=== PATIENT | female | born 1950 | race African-American/Black ===

== ENCOUNTER 2022-11-20 12:40 | Inpatient (IN) | payer OTHER ==
[2022-11-20 12:51] VITALS: BMI 18.8
[2022-11-20 14:36] LABS: VENOUS BASE EXCESS -2.6 mmol/L (-2-2); VENOUS O2 SATURATION 45.4 % (70-80); VENOUS PCO2 28.8 mmHg (38-52); VENOUS PH 7.463 (7.310-7.410)
[2022-11-20 14:43] LABS: BASO % 2.2 % (0-2.0); EOS % 1.6 % (0-4.5); HEMATOCRIT 32.5 % (32.4-45.2); HEMOGLOBIN 10.3 GM/dL (10.7-15.3); LYMPH % 23.6 % (8-40); MCH 26.6 pg (25.7-33.7); MCHC 31.8 g/dl (32.0-36.0); MEAN CELL VOLUME 83.7 fl (80-96); MEAN PLT VOLUME 8.4 fl (7.5-11.1); MONO % 11.2 % (3.8-10.2); NEUT % 61.4 % (42.8-82.8); PLATELET COUNT 163 10^3/uL (134-434); RBC 3.88 M/mm3 (3.60-5.2); RDW 17.7 % (11.6-15.6); WHITE BLOOD COUNT 7.6 K/mm3 (4.0-10.0)
[2022-11-20 14:52] LABS: ACTIVATED PTT 25.8 SECONDS (25.2-36.5); INR 1.31 (0.83-1.09); PROTHROMBIN TIME (PATIENT) 15.2 SEC (9.7-13.0)
[2022-11-20 15:06] LABS: LACTIC ACID 2.8 mmol/L (0.4-2.0); POTASSIUM 3.8 mmol/L (3.5-5.1)
[2022-11-20 15:08] LABS: ALBUMIN 2.2 g/dl (3.4-5.0); BLOOD UREA NITROGEN 11.5 mg/dL (7-18); CALCIUM 9.4 mg/dL (8.5-10.1)
[2022-11-20 15:11] LABS: CREATININE 1.1 mg/dL (0.55-1.3)
[2022-11-20 15:13] LABS: BILIRUBIN,TOTAL 0.5 mg/dL (0.2-1); TOT PROT 4.5 g/dl (6.4-8.2)
[2022-11-20] MEDS ORDERED: SODIUM CHLORIDE 0.9% 500 ML INFUS.BAG IV ONE (15:41)
[2022-11-20 16:22] LABS: EPI CELLS 32 /uL (0-25.1); HYALINE CASTS 0 /uL (0-3.1); PH,URINE 7.5 (5.0-8.0); URINE APPEARANCE CLOUDY; URINE BACTERIA >9,000 /uL (0-1359); URINE BILIRUBIN NEGATIVE (NEGATIVE); URINE COLOR YELLOW; URINE GLUCOSE (UA) NEGATIVE (NEGATIVE); URINE KETONE NEGATIVE (NEGATIVE); URINE LEUK ESTERASE 1+ (NEGATIVE); URINE NITRITE NEGATIVE (NEGATIVE); URINE PROTEIN NEGATIVE (NEGATIVE); URINE RBC 25 /uL (0-23.9); URINE UROBILINOGEN 0.2 mg/dL (0.2-1.0); URINE WBC 24 /uL (0-25.8)
[2022-11-20 16:45] LABS: URINE CRYSTALS CALCIUM OXALATE /hpf
[2022-11-20 18:57] LABS: LACTIC ACID 2.2 mmol/L (0.4-2.0)
[2022-11-20] MEDS ORDERED: ACETAMINOPHEN 1000 MG/100 ML BAG IVPB PRN (20:15)
[2022-11-20] MEDS: DEXTROSE 5%-NORMAL SALINE 1,000 ML IV SCH (23:33)
[2022-11-20] MEDS: levETIRAcetam 500 MG/5 ML INJECTION VIAL IVPB ONE (23:57)
[2022-11-21] MEDS: levETIRAcetam 500 MG/5 ML INJECTION VIAL IVPB ONE (01:04)
[2022-11-21] MEDS: HEPARIN NA (PORCINE) 5,000 UNITS/ML 1ML VIAL SQ SCH ×2 (09:26→22:23)
[2022-11-21] MEDS: predniSONE 5 MG TABLET (UD) PO SCH (09:26)
[2022-11-21] MEDS: levETIRAcetam 500 MG TABLET (FP) PO SCH ×2 (09:26→22:23)
[2022-11-21] MEDS: TACROLIMUS ANHYDROUS 1 MG CAPSULE PO SCH ×2 (09:26→22:24)
[2022-11-21] MEDS: FAMOTIDINE 20 MG TABLET PO SCH (09:26)
[2022-11-21] MEDS: MYCOPHENOLATE MOFETIL 500 MG TABLET PO SCH ×2 (09:27→22:24)
[2022-11-21] MEDS: DEXTROSE 5%-NORMAL SALINE 1,000 ML IV SCH (09:30)
[2022-11-21] MEDS ORDERED: CEFTRIAXONE 2 GM in DEXTROSE 5%-WATER 50 ML IVPB SCH (12:00)
[2022-11-21] MEDS ORDERED: CEFTRIAXONE 2 GM in DEXTROSE 5%-WATER 100 ML IVPB SCH (13:09)
[2022-11-21] MEDS ORDERED: ACETAMINOPHEN 325 MG TABLET (FP) PO PRN (20:07)
[2022-11-22 02:53] VITALS: RESP 18
[2022-11-22] MEDS: HEPARIN NA (PORCINE) 5,000 UNITS/ML 1ML VIAL SQ SCH ×2 (10:54→22:15)
[2022-11-22] MEDS: FAMOTIDINE 20 MG TABLET PO SCH (10:54)
[2022-11-22] MEDS: levETIRAcetam 500 MG TABLET (FP) PO SCH ×2 (10:54→22:15)
[2022-11-22] MEDS: predniSONE 5 MG TABLET (UD) PO SCH (10:54)
[2022-11-22] MEDS: TACROLIMUS ANHYDROUS 1 MG CAPSULE PO SCH ×2 (10:55→22:15)
[2022-11-22] MEDS: MYCOPHENOLATE MOFETIL 500 MG TABLET PO SCH ×2 (10:55→22:15)
[2022-11-22] MEDS: DEXTROSE 5%-NORMAL SALINE 1,000 ML IV SCH (10:56)
[2022-11-23] MEDS: AMOX TR/POT CLAV 500MG/125MG TABLETS (FP) PO SCH ×3 (10:07→17:14)
[2022-11-23] MEDS: levETIRAcetam 500 MG TABLET (FP) PO SCH ×2 (10:08→11:31)
[2022-11-23] MEDS: FAMOTIDINE 20 MG TABLET PO SCH ×2 (10:08→11:32)
[2022-11-23] MEDS: HEPARIN NA (PORCINE) 5,000 UNITS/ML 1ML VIAL SQ SCH ×2 (10:08→11:36)
[2022-11-23] MEDS: TACROLIMUS ANHYDROUS 1 MG CAPSULE PO SCH ×2 (10:08→11:31)
[2022-11-23] MEDS: MYCOPHENOLATE MOFETIL 500 MG TABLET PO SCH ×3 (10:08→11:34)
[2022-11-23] MEDS: predniSONE 5 MG TABLET (UD) PO SCH ×2 (10:08→11:32)
[2022-11-23 13:17] VITALS: TEMP 97.6
[2022-11-23 14:35] VITALS: BP 157/93; PULSE 98
[2022-11-23 15:13] LABS: TACROLIMUS FK506 BLOOD 12.2 ng/mL (2.0-20.0)
== END 2022-11-23 19:25 | DRG 948 ==
LOC: JER 12:40 → JERBED 17:00 → J6S 11-21 02:33
PROVIDERS: ADMIT Internal Medicine; ATTEND Family Medicine
DX: R41.82 Altered mental status, unspecified (principal); Z94.0 Kidney transplant status; R26.2 Difficulty in walking, not elsewhere classified; R53.83 Other fatigue; R53.1 Weakness; J44.9 Chronic obstructive pulmonary disease, unspecified; R26.9 Unspecified abnormalities of gait and mobility; N18.9 Chronic kidney disease, unspecified
CPT/HCPCS: 0241U-QW; 36415; 70450-TC; 71045-TC-FY; 80053; 80180; 80197; 81003; 82607; 82746; 82803; 83605; 84484; 85025; 85610; 85730; 86850; 86900; 86901; 87040; 87086; 93005; 93010; 97116-GP; 97161-GP; 99285-25; J1644; J7517